=== PATIENT | male | born 1945 | race African-American/Black ===

== ENCOUNTER 2019-11-13 10:11 | Emergency (ER) | payer OTHER ==
[2019-11-13 10:22] VITALS: TEMP 98.2; BMI 33.0
--- NOTE | 2019-11-13 11:19 | PDOC ---
History of Present Illness - General Chief Complaint: Urinary Problem Stated Complaint: URINARY PROBLEMS Time Seen by Provider: 11/13/19 10:44 History Source: Patient Exam Limitations: No Limitations - History of Present Illness Travel History: No Initial Comments: 11/13/19 11:14 HISTORY OF PRESENT ILLNESS: 73-year-old male past medical history of hype rtension, hyperlipidemia, renal cysts who presents to the emergency department for evaluation of epigastric pain radiating to the right upper quadrant, discolored urine for 6 months, intermittent constipation over the past month. Patient reports his last bowel movement was this morning and was a soft formed stool. Prior bowel movement was yesterday. He denies any rectal bleeding or rectal pain. Patient reports his epigastric pain worsens after eating acidic foods but the pain is improved after taking Mucinex. Patient denies any dysuria but is not sure if his urine is orange or bloody. He denies any flank pain. Patient reports had a colonoscopy 1 year ago reported he had multiple polyps which caused him to be hospitalized upon collection during colonoscopy. Patient reports extensive rectal bleeding after polyp removal requiring a 2-week hospital stay and multiple transfusions. No recent travel or sick contacts. PAST MEDICAL HISTORY: See HPI SURGICAL HISTORY: Denies ALLERGIES: Penicillin REVIEW OF SYSTEMS General/Constitutional: Denies fever or chills. Denies weakness, weight change. HEENT: Denies change in vision. Denies ear pain or discharge. Denies sore throat. Cardiovascular: Denies chest pain or shortness of breath. Respiratory: Denies cough, wheezing, or hemoptysis. Gastrointestinal: See HPI Genitourinary: See HPI Musculoskeletal: Denies joint or muscle swelling or pain. Denies neck or back pain. Skin and breasts: Denies rash or easy bruising. Neurologic: Denies headache, vertigo, loss of consciousness, or loss of sensation. Psychiatric: Denies depression or anxiety. Endocrine: Denies increased thirst. Denies abnormal weight change. Hematologic/Lymphatic: Denies anemia, easy bleeding, or history of blood clots. Allergic/Immunologic: Denies hives or skin allergy. Denies latex allergy. PHYSICAL EXAM General Appearance: Well-appearing, appropriately dressed. No apparent distress, no intoxication. HEENT: EOMI, PERRLA, normal ENT inspection, normal voice, TMs normal, pharynx normal. No conjunctival pallor. No photophobia, scleral icterus. Neck: Supple. Trachea midline. No tenderness, rigidity, carotid bruit, stridor, lymphadenopathy, or thyromegaly. Respiratory/Chest: Lungs CTAB. No shortness of breath, chest tenderness, respiratory distress, accessory muscle use. No crackles, rales, rhonchi, stridor, wheezing, dullness Cardiovascular: RRR. S1, S2. No JVD, murmur, bradycardia, tachycardia. Gastrointestinal/Abdominal: Normal bowel sounds. Abdomen soft, non-distended. No tenderness or rebound tenderness. No organomegaly, pulsatile mass, guarding, hernia, hepatomegaly, splenomegaly. Musculoskeletal/Extremities: Normal inspection. Normal capillary refill. Pelvis Stable. No CVA tenderness. Past History - Medical History Allergies/Adverse Reactions: Allergies Allergy/AdvReac Type Severity Reaction Status Date / Time Penicillins Allergy Severe Difficulty Verified 11/13/19 10:17 Breathing Home Medications: Ambulatory Orders Azithromycin [Zithromax 250mg Tablets -] 250 mg PO UTDICT #6 tab 11/13/19 COPD: No HTN: Yes - Immunization History Immunization Up to Date: Yes - Psycho-Social/Smoking History Smoking History: Current some day smoker Number of Cigarettes Smoked Daily: 2 Information on smoking cessation initiated: No - Substance Abuse Hx (Audit-C & DAST Scrn) How often the patient has a drink containing alcohol: Never Score: In Men: 4 or > Positive; In Women: 3 or > Positive: 0 Screen Result (Pos requires Nsg. Audit-10AR): Negative *Physical Exam - Vital Signs Last Vital Signs Temp Pulse Resp BP Pulse Ox 98.2 F 64 18 146/82 100 11/13/19 10:17 11/13/19 10:17 11/13/19 10:17 11/13/19 10:17 11/13/19 10:17 ED Treatment Course - LABORATORY CBC & Chemistry Diagram: 11/13/19 11:55 11/13/19 11:12 - RADIOLOGY Radiology Studies Ordered: Category Date Time Status ABDOMEN & PELVIS CT WITH CONTR [CT] Stat CT Scan 11/13/19 11:13 Ordered Medical Decision Making - Medical Decision Making 11/13/19 11:19 A/P: 73-year-old male for evaluation of epigastric pain, intermittent constipation and discolored urine Physical exam is grossly unremarkable As patient is a 73-year-old male with frequent polyps on colonoscopies will do a full abdominal evaluation with urine, blood work, EKG and CT of the abdomen and pelvis with IV and p.o. contrast. 11/13/19 14:48 Laboratory Tests 11/13/19 11/13/19 11/13/19 11:12 11:55 11:55 WBC 5.8 RBC 5.49 Hgb 14.8 Hct 44.7 MCV 81.4 MCH 27.0 MCHC 33.2 RDW 14.6 Plt Count 163 MPV 9.8 Absolute Neuts (auto) 3.1 Neutrophils % 53.2 Lymphocytes % 34.3 Monocytes % 11.7 H Eosinophils % 0.1 Basophils % 0.7 Nucleated RBC % 0 Sodium 142 Potassium 3.6 Chloride 106 Carbon Dioxide 29 Anion Gap 7 L BUN 17.6 Creatinine 1.2 Est GFR (CKD-EPI)AfAm 69.60 Est GFR (CKD-EPI)NonAf 60.05 Random Glucose 90 Calcium 9.6 Total Bilirubin 0.9 AST 19 ALT 18 Alkaline Phosphatase 46 Creatine Kinase 314 H Creatine Kinase Index 0.9 CK-MB (CK-2) 3.0 Troponin I < 0.02 Total Protein 7.0 Albumin 3.6 Lipase 335 Urine Color Yellow Urine Appearance Clear Urine pH 6.5 Ur Specific [place] 1.025 Urine Protein 2+ H Urine Glucose (UA) Negative Urine Ketones Trace H Urine Blood Negative Urine Nitrite Negative Urine Bilirubin Negative Urine Urobilinogen 1.0 Ur Leukocyte Esterase Negative Urine WBC (Auto) 6 Urine RBC (Auto) 6 Urine Casts (Auto) 1 U Epithel Cells (Auto) 21 Urine Bacteria (Auto) 263 EKG sinus rhythm rate of 52. T wave inversions present in V5 and V6. Initial troponin is negative and symptoms have been present for greater than [address] scan of the abdomen is read by Dr. Wagoner: Patchy airspace opacities include a portion of the left lung suggestive of pneumonia. Rule out COVID-19 infection. 3.3 cm left renal cyst. There is no evidence of small bowel obstruction. Thickening of the urinary bladder wall likely due to partial distention. Candida elate clinically to rule out cystitis. Otherwise there is no CT evidence of an acute process in the abdomen and pelvis. Left renal cyst is an old finding according to the patient. COVID-19 testing Discharge home with prescription for azithromycin I discussed the physical exam findings, ancillary test results and final diagnoses with the patient. I answered all of the patient's questions. The pat ient was satisfied with the care received and felt comfortable with the discharge plan and treatment plan. The patient will call their primary care physician within 24 hours to arrange follow-up and will return to the Emergency Department with any new, persistent or worsening symptoms. Portions of this note have been documented using voice recognition software. As a result, errors may occur in the grader meat process. Effort has been made to correct all grammatical and grader meat error, but some may have been missed which may produce sporadic inaccurate grader meat or nonsensical phrases. 11/13/19 15:01 Discharge - Discharge Information Problems reviewed: Yes Clinical Impression/Diagnosis: Counseled about COVID-19 virus infection Pneumonia Qualifiers: Pneumonia type: due to unspecified organism Laterality: left Lung location: unspecified part of lung Qualified Code(s): J18.9 - Pneumonia, unspecified organism GERD (gastroesophageal reflux disease) Qualifiers: Esophagitis presence: esophagitis presence not specified Qualified Code(s): K21.9 - Gastro-esophageal reflux disease without esophagitis Condition: Fair Disposition: HOME - Admission No - Additional Discharge Information Prescriptions: Azithromycin [Zithromax 250mg Tablets -] 250 mg PO UTDICT #6 tab - Follow up/Referral - Patient Discharge Instructions Additional Instructions: Keep all previously scheduled appointments for evaluation of your renal cyst. Take azithromycin as directed. Your COVID-19 testing will be resulted in 24 to 48 hours. You will receive a phone call regardless of results. Keep well-hydrated. Take Tylenol as needed for pain. May take Maalox to help relieve your indigestion after meals. Return to the emergency department any new or worsening symptoms. Thank you very much for choosing us to provide your emergent healthcare needs. - Post Discharge Activity
[2019-11-13 12:10] LABS: BASO % 0.7 % (0-2.0); EOS % 0.1 % (0-4.5); HEMATOCRIT 44.7 % (35.4-49); HEMOGLOBIN 14.8 GM/dL (11.7-16.9); LYMPH % 34.3 % (8-40); MCHC 33.2 g/dl (32.0-35.9); MEAN CELL VOLUME 81.4 fl (80-96); MEAN PLT VOLUME 9.8 fl (7.5-11.1); MONO % 11.7 % (3.8-10.2); NEUT % 53.2 % (42.8-82.8); PLATELET COUNT 163 K/MM3 (134-434); RBC 5.49 M/mm3 (4.00-5.60); RDW 14.6 % (11.9-15.9); WHITE BLOOD COUNT 5.8 K/mm3 (4.0-10.0)
[2019-11-13 12:12] LABS: EPI CELLS 21 /uL (0-25.1); HYALINE CASTS 1 /uL (0-3.1); PH,URINE 6.5 (5.0-8.0); URINE APPEARANCE CLEAR; URINE BACTERIA 263 /uL (0-1359); URINE BILIRUBIN NEGATIVE (NEGATIVE); URINE COLOR YELLOW; URINE GLUCOSE (UA) NEGATIVE (NEGATIVE); URINE KETONE TRACE (NEGATIVE); URINE LEUK ESTERASE NEGATIVE (NEGATIVE); URINE NITRITE NEGATIVE (NEGATIVE); URINE PROTEIN 2+ (NEGATIVE); URINE RBC 6 /uL (0-23.9); URINE WBC 6 /uL (0-25.8)
[2019-11-13 12:49] LABS: ALBUMIN 3.6 g/dl (3.4-5.0); ALK PHOS 46 U/L (45-117); ANION GAP 7 MMOL/L (8-16); BILIRUBIN,TOTAL 0.9 mg/dL (0.2-1); BLOOD UREA NITROGEN 17.6 mg/dL (7-18); CALCIUM 9.6 mg/dL (8.5-10.1); CHLORIDE 106 mmol/L (98-107); CO2 29 mmol/L (21-32); CREATININE 1.2 mg/dL (0.55-1.3); GLUCOSE,RANDOM 90 mg/dL (74-106); LIPASE 335 U/L (73-393); POTASSIUM 3.6 mmol/L (3.5-5.1); SGOT/AST 19 U/L (15-37); SGPT/ALT 18 U/L (13-61); SODIUM 142 mmol/L (136-145)
--- NOTE | 2019-11-13 14:56 | EKG ---
Test Reason : Blood Pressure : / mmHG Vent. Rate : 052 BPM Atrial Rate : 052 BPM P-R Int : 232 ms QRS Dur : 098 ms QT Int : 444 ms P-R-T Axes : 073 044 046 degrees QTc Int : 412 ms POOR DATA QUALITY, INTERPRETATION MAY BE ADVERSELY AFFECTED SINUS BRADYCARDIA WITH 1ST DEGREE A-V BLOCK MINIMAL VOLTAGE CRITERIA FOR LVH, MAY BE NORMAL VARIANT T WAVE ABNORMALITY, CONSIDER LATERAL ISCHEMIA ABNORMAL ECG NO PREVIOUS ECGS AVAILABLE Confirmed by Monster Johsn ([id number]) on 11/13/2019 2:56:18 PM Referred By: Confirmed By:Monster Johns
[2019-11-13 15:43] VITALS: BP 132/83; PULSE 71
== END 2019-11-13 15:43 | disposition home or self-care (01) ==
LOC: JER 10:11
DX: K21.9 Gastro-esophageal reflux disease without esophagitis (principal); J18.9 Pneumonia, unspecified organism
CPT/HCPCS: 36415; 74177-TC; 80053; 81003; 82550; 82553; 83690; 84484; 85025; 87086; 93005; 93010; 99285-25; Q9967; U0003